=== PATIENT | female | born 1975 | race Caucasian/White ===

== ENCOUNTER 2023-10-12 08:24 | Emergency (ER) | payer MEDICAID ==
[~2023-10-12] VITALS: Ht 152.4 cm; Wt 65.3 kg
[2023-10-12 08:46] VITALS: BP_SYST 163; PULSE 113; RESP 20; TEMP 97.7; O2SAT 98
[2023-10-12] MEDS: IBUPROFEN 600 MG TABLET PO ONE (09:21)
[2023-10-12] MEDS: HYDROcodone/ACETAMIN 10-325 MG TAB PO ONE (09:22)
[2023-10-12 09:23] LABS: BILIRUBIN,URINE NEGATIVE (NEGATIVE); BLOOD, URINE 3+ (NEGATIVE); CLARITY/URINE SL CLOUDY (CLEAR); COLOR,URINE YELLOW (YELLOW); GLUCOSE,URINE NEGATIVE (NEGATIVE); KETONES,URINE NEGATIVE (NEGATIVE); LEUKOCYTE ESTERASE ,URINE 3+ (NEGATIVE); NITRITE, URINE NEGATIVE (NEGATIVE); PROTEIN URINE 1+ (NEGATIVE); UROBILINOGEN,URINE 0.2 (0.2-1.0)
[2023-10-12 09:37] LABS: BASOPHILS # (AUTO) 0.1 K/uL (0.0-0.2); BASOPHILS % (AUTO) 0.7 % (0.0-2.0); EOSINOPHILS # (AUTO) 0.1 K/uL (0.0-0.4); EOSINOPHILS % (AUTO) 0.6 % (0.0-4.0); HEMATOCRIT 42.4 % (36-48); HEMOGLOBIN 14.3 g/dL (12.0-16.0); LYMPHOCYTES # (AUTO) 2.5 K/uL (1.0-5.5); LYMPHOCYTES % (AUTO) 13.6 % (20.5-51.5); MEAN CORPUSCULAR HEMOGLOBIN 32 pg (27-31); MEAN CORPUSCULAR HGB CONC 34 % (32-36); MEAN CORPUSCULAR VOLUME 94 fL (79.0-98.0); MONOCYTES % (AUTO) 5.6 % (1.7-9.3); NEUTROPHILS # (AUTO) 14.6 K/uL (1.8-7.7); NEUTROPHILS % (AUTO) 79.5 % (40.0-70.0); PLATELET COUNT (AUTO) 524 K/uL (130-430); RED CELL DISTRIBUTION WIDTH 13.1 % (9.0-15.0); WHITE BLOOD COUNT (AUTO) 18.4 K/uL (4.8-10.8)
[2023-10-12 09:44] LABS: BACTERIA,URINE FEW /HPF (None Seen); RBC,URINE 20-50 /HPF (0-3); WBC,URINE 20-50 /HPF (0-3)
[2023-10-12 09:50] LABS: SERUM HCG (QUALITATIVE) NEGATIVE (NEGATIVE)
[2023-10-12 10:01] LABS: CALCIUM 8.8 mg/dL (8.4-11.0); CREATININE 0.74 mg/dL (0.55-1.30); POTASSIUM 3.9 mmol/L (3.5-5.1); TOTAL BILIRUBIN 0.4 mg/dL (0.0-1.0); TOTAL PROTEIN, SERUM 8.8 g/dL (6.4-8.3)
[2023-10-12 10:22] LABS: BILIRUBIN,DIRECT 0.1 mg/dL (0.0-0.3)
[2023-10-12] MEDS ORDERED: cefTRIAXone 1 GM VIAL ONE (11:12)
[2023-10-12] MEDS: cefTRIAXone 1 GM in D5W 50 ML IV ONE (11:19)
[2023-10-12] MEDS ORDERED: NITR-85 PO (11:49)
[2023-10-12] MEDS ORDERED: IBUP-1969 PO (11:49)
[2023-10-12 12:03] VITALS: BP_SYST 129; PULSE 90; RESP 18; TEMP 97.9; O2SAT 96
== END 2023-10-12 12:02 | disposition home or self-care (01) ==
LOC: SED 08:24
DX: N12 Tubulo-interstitial nephritis, not specified as acute or chronic (principal); R11.0 Nausea; Z79.899 Other long term (current) drug therapy
CPT/HCPCS: 99285; 74176; 96365; 80076; 80048; 81001; 82150; 84703; 83690; 85025; 87040; 87086; 87186; 36415; 81025; 83605; 82397; 81000; 81015; J0696